=== PATIENT | female | born 1995 | race Caucasian/White ===

== ENCOUNTER 2017-05-24 13:26 | Inpatient (IN) | payer SELFPAY ==
[2017-05-24 14:05] LABS: Hemoglobin 3.6 g/dL (12.0-16.0); Mean Corpuscular HGB CONC 25.8 g/dL (32.0-36.0); Mean Corpuscular Hemoglobin 14.8 pg (25.0-35.0); Mean Corpuscular Volume 57.3 fl (77.0-87.0); Mean Platelet Volume 4.7 fL (7.4-10.4); Platelet Count 360 thou/uL (130-400); RBC Distribution Width 18.9 % (11.5-14.5); Red Blood Cell (RBC) Count 2.43 mill/uL (4.00-5.20); Reflex for Review?? YES; White Blood Cell (WBC) Count 4.4 thou/uL (4.8-10.8)
[2017-05-24 14:09] LABS: INR-International Normal Ratio 1.2; Prothrombin Time 14.9 SEC (12.0-14.7)
[2017-05-24 14:17] LABS: BHCG - Serum Negative (NEGATIVE); Pregs Control Background? CLEAR/WHITE (CLR/WHITE); Pregs Control Bar Appear? YES (CONTROL BAR)
[2017-05-24 14:21] LABS: #Lymphocytes 1.3 thou/uL (1.20-3.40); #Monocytes 0.4 thou/uL (0.11-0.59); #Neutrophils 2.6 thou/uL (1.40-6.50); %Basophils 0.7 % (0.0-1.0); %Eosinophils 0.6 % (0.0-10.0); %Lymphocytes 30.4 % (28.0-48.0); %Neutrophils 59.3 % (31.0-61.0); Anisocytosis MODERATE=16-30 cells (100X) (0-5/hpf); Band 1 % (5-11); Elliptocytes SLIGHT = 2-5 cells (100X) (0-1/hpf); Hypochromia MARKED = >30 cells (100X) (0-5/hpf); Lymphocytes 21 % (28-48); MDiff Complete? YES; Microcytosis MODERATE=15-30 cells (100X) (0-5/hpf); Monocytes 1 % (0-4); Neutrophil 75 % (31-61); Nucleated RBC 1 % (0); Ovalocytes SLIGHT = 2-5 cells (100X) (0-1/hpf); PLT Morphology Comment Appears Adequate; Poikilocytosis SLIGHT = 6-15 cells (100X) (0-5/hpf); Polychromasia MODERATE = 3-4 cells (100X) (0-2/hpf); Schistocytes SLIGHT = 2-5 cells (100X) (0-1/hpf); Spherocytes SLIGHT = 1-5 cells (100X) (None Seen); Target Cells SLIGHT = 2-5 cells (100X) (0-1/hpf); Tear Drops SLIGHT = 2-5 cells (100X) (0-1/hpf)
[2017-05-24 14:22] LABS: ALT (SGPT) Less than 7 U/L (8-55); AST (SGOT) 12 U/L (5-30); Albumin 4.2 g/dL (3.5-5.0); Alkaline Phosphatase 44 U/L (40-150); Anion Gap 10 mmol/L (10-20); BUN (Urea Nitrogen) 10 mg/dL (8.4-21.0); Bilirubin, Total 0.3 mg/dL (0.2-1.2); Calc. Creatinine Clearance 0 mL/min (70-130); Carbon Dioxide 23 mmol/L (22-29); Chloride 106 mmol/L (98-107); Estimated GFR-MDRD Greater than 90; Globulin 2.5 g/dL (2.4-3.5); Glucose 100 mg/dL (70-105); Potassium 3.8 mmol/L (3.5-5.1); Protein, Total 6.7 g/dL (6.0-8.3); Sodium 135 mmol/L (136-145)
--- NOTE | 2017-05-24 15:54 | PDOC.EVN ---
Event Note - Event Note Event Note: GYNECOLOGY History and Physical HPI: I was just called about Ms Morales by Dr Quevedo in the ED. 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 here for persistant HMB. her hbg was 3.6 in the ER and the ED team is transfusing her. As I am in L&D with another patient's needs, I have discussed the case with the ER physician and we will admit her to the gynecology floor after she starts her transfusion (3 units ). Past med HX: Type 2 VWF Allergies: none Physical: slight to moderate VB PV per ER report Sono pending Meds pending: IV premarin 25 mg IV Q6 hrs Consult: Dr Wiggins consult Assessment/Plan: Severe anemia from HMB due to VBF deficinecy. 1. Heme onc aware and will eval as inpatient 2. IV estrogen for now 3. sono pending per protocol 4. 3 unit PRBCs
[2017-05-24 16:50] LABS: Ref Lab Test Ordered VWF SCREENING PROFIL; Reference Lab Name LABCORP
--- NOTE | 2017-05-24 16:52 | ULT ---
PELVIC SONOGRAM TRANSABDOMINAL AND TRANSVAGINAL IMAGING WITH DUPLEX EVALUATION: HISTORY: Pelvic pain and bleeding. FINDINGS: Urinary bladder is incompletely distended. Uterus has a very heterogeneous echotexture measuring up to 12.3 cm. Centrally within the uterus is a very heterogeneous slightly hypoechoic mass measuring u p to 9.2 x 7.3 cm. It is not clear if this arises from the endometrium or from the myometrium, marke dly compressing the otherwise not visualized endometrium. No free fluid is evident within the pelvis. Neither ovary is visualized with transabdominal or trans vaginal imaging. No adnexal masses are apparent. IMPRESSION: Large heterogeneous uterine mass as detailed above, measuring up to 9.2 cm. It is not clear if it ar ises from the endometrium or from the myometrium. Please consider gynecologic consultation. MRI of the female pelvis on a nonemergent basis may be helpful for better characterization of the abnormalit y. POS: [facility]
[2017-05-24] MEDS ORDERED: Estrogens, Conjugated 25 mg Vial SLOW IVP SCH ×2 (17:00→18:00)
--- NOTE | 2017-05-24 17:41 | PDOC.EVN ---
Event Note - Event Note Event Note: Patient has just arrived to [facility] floor. I will see her when free in L&D. Per communication with [facility] floor RN, no blood has yet been given in ED. I have authorized to start NOW with her 3 units PRBCs. NS ordered for IVfs. Estrogen dose x 1 given in ED.
[2017-05-24 17:50] VITALS: BMI 23.3
[2017-05-24] MEDS ORDERED: Acetaminophen 500 MG TAB PO PRN (18:27)
--- NOTE | 2017-05-24 18:35 | PDOC.EVN ---
Event Note - Event Note Event Note: Patient sen at bedside at 1830. Mother in room. Mother also with VWF deficiency. History reviewed: no prior transfusion. No surgeries. No allergies. s. The patient is well but has a headache. still with some vag bleed o. Pulse 114. Physical: NAD abd soft and nt pelvic deffered assessment: known vWF with svere anemia due to VWF plan: 1. IV e2 in use 2. Blood now going. i was told she would start that in ED but did not. 3. IVFs 4. Needs OCPs after stabilization as outpatient 5. Dr zhang pending sono has been done in ED
[2017-05-24] MEDS ORDERED: Sterile Water 10 ML ONE (21:43)
[2017-05-24] MEDS: Estrogens, Conjugated 25 mg Vial SLOW IVP SCH (21:49)
[2017-05-24] MEDS: Sodium Chloride 0.9% 1,000 ML IV SCH (21:52)
[2017-05-25] MEDS: Estrogens, Conjugated 25 mg Vial SLOW IVP SCH ×5 (01:23→21:20)
[2017-05-25] MEDS: Sodium Chloride 0.9% 1,000 ML IV SCH ×4 (05:21→17:14)
--- NOTE | 2017-05-25 07:01 | PDOC.EVN ---
Event Note - Event Note Event Note: HD 1. Seen at bedside at 0645 S. feels better. No COREA now. States VB is vert slight now O. Last unit ended at 0530..Hct ordered for 1200 noon IV estrogen will be complete at 1700 Physical: NAD Pelvic deferred A/P: Severe anemia from VWF. S/P 3 units. Plan: Hct at 1200 noon Continue E2 until 1700 (24 hours) Watch overnight and then home on a 1.530 OCP for continuous use (no placebos) Lidia to see her today
--- NOTE | 2017-05-25 07:35 | PDOC.EVN ---
Event Note - Event Note Event Note: MRI note: I discussed sono with patient. As she is 21 with a large mass on the uterus (9cm ), this may NOT just be a fibroid. I will get the MRI today to correlate. I have discussed this with the patient and our nursing staff.
[2017-05-25] MEDS ORDERED: IRON DEXTRAN IVPB SCH (09:45)
[2017-05-25] MEDS ORDERED: SODIUM CHLORIDE IVPB SCH (09:45)
[2017-05-25] MEDS ORDERED: ADMIXTURE FEE IVPB SCH (09:45)
[2017-05-25 10:27] LABS: Iron 14 ug/dL (50-170); Iron Binding Capacity, Total 389 mcg/dL (265-497)
[2017-05-25 10:57] LABS: #Basophils 0.1 thou/uL (0.0-0.2); #Eosinphils 0.1 thou/uL (0.0-0.7); #Lymphocytes 2.1 thou/uL (1.20-3.40); #Monocytes 0.7 thou/uL (0.11-0.59); #Neutrophils 4.1 thou/uL (1.40-6.50); %Basophils 0.7 % (0.0-1.0); %Lymphocytes 29.8 % (28.0-48.0); %Monocytes 9.5 % (0.0-4.0); %Neutrophils 58.1 % (31.0-61.0); Anisocytosis MODERATE=16-30 cells (100X) (0-5/hpf); Hemoglobin 7.1 g/dL (12.0-16.0); Hypochromia MODERATE=16-30 cells (100X) (0-5/hpf); MDiff Complete? YES; Mean Corpuscular HGB CONC 31.1 g/dL (32.0-36.0); Mean Corpuscular Hemoglobin 20.7 pg (25.0-35.0); Mean Corpuscular Volume 66.4 fl (77.0-87.0); Mean Platelet Volume 4.9 fL (7.4-10.4); Microcytosis MODERATE=15-30 cells (100X) (0-5/hpf); Ovalocytes SLIGHT = 2-5 cells (100X) (0-1/hpf); Platelet Count 305 thou/uL (130-400); Poikilocytosis SLIGHT = 6-15 cells (100X) (0-5/hpf); RBC Distribution Width 22.9 % (11.5-14.5); Red Blood Cell (RBC) Count 3.43 mill/uL (4.00-5.20)
--- NOTE | 2017-05-25 10:58 | CON ---
DATE OF CONSULTATION: 05/25/2017 REASON FOR CONSULTATION: Von Willbrand factor deficiency. HISTORY OF PRESENT ILLNESS: Ms. Morales is a pleasant 21-year-old female, who presented to the emergency room with vaginal bleeding and headache. She has a known history of Von Willbrand fact or deficiency. Her mother has the same diagnosis. She was originally diagnosed as a child, but has never had any bleeding episodes or issues. She states her vaginal bleeding started 6 days ago. In [facility] ER, a CBC showed a white count of 4.4, hemoglobin of 3.6, hematocrit of 13.9, and a platelet count of 360,000. The patient was transfused 3 units of packed RBCs. She states that her vaginal bleedin g has mostly resolved. She is having some light spotting. She admits to fatigue and shortness of br eath with exertion. She did have a vaginal ultrasound performed, which showed a large heterogeneous mass measuring 9.2 x 7.3 and likely the source of her bleeding, we were asked to see the patient's to assist with treatment and diagnosis. PAST MEDICAL HISTORY: Von Willbrand factor deficiency, type 2. PAST SURGICAL HISTORY: None. ALLERGIES: No known drug allergies. HOME MEDICATIONS: None. FAMILY HISTORY: Mother has Von Willbrand factor deficiency. SOCIAL HISTORY: She is single, lives in [facility]. No alcohol, tobacco, or illicit drug use. REVIEW OF SYSTEMS: Twelve-point review of systems is negative except for noted in HPI. PHYSICAL EXAMINATION: VITAL SIGNS: Temperature is 98.2, pulse is 94, respiratory rate 18, BP is 123/77. She is 100% on ro om air. GENERAL: This is a well-developed, well-nourished female in no acute distress. HEENT: Normocephalic, atraumatic. Pupils equal and reactive to light. She does have pallor. NECK: Supple. CARDIOVASCULAR: Regular rate and rhythm. LUNGS: Clear. ABDOMEN: There is a palpable firm mass in her pelvic area. It is nontender. EXTREMITIES: There is no clubbing, cyanosis, or edema. SKIN: No rash. HEMATOLOGIC: No petechia or purpura. NEUROLOGIC: Nonfocal. PSYCHIATRIC: The patient is alert and oriented and appropriate. PERTINENT LABORATORY AND X-RAYS: Yesterday's CBC showed a white count of 4.4, hemoglobin 3.6, hemato crit of 13.9, and a platelet count of 360. Her sodium was 135, potassium 3.8, chloride 106, CO2 is 2 3, BUN is 10, creatinine 0.69, calcium is 9.0, total bilirubin is 0.3, AST is 12, ALT is less than 7, alkaline phosphatase is 44. Serum total protein is 6.7, albumin 4.2, globulin 2.5. Her i s negative. Radiology per HPI. ASSESSMENT: 1. Von Willbrand factor deficiency. 2. Vaginal bleeding. 3. Severe anemia. 4. Uterine mass on the ultrasound. DISCUSSION: The patient has been transfused 3 units of packed RBCs. I do not have a repeat hemoglob in at this time and we will order that stat now. She has microcytic anemia and is most likely iron d eficient from her bleeding. We will order iron studies and give her an infusion of IV iron. She has been on oral iron in the past, which she says is constipating so we will fix her with IV iron. She has received estrogen with almost complete resolution of her vaginal bleeding. We will not give her DDAVP at this time, but it is an option should she continue to have significant bleeding. She will b e placed on oral contraceptive products by the hospitalist once her estrogen is done, and agree with an MRI to evaluate this uterine mass. If it is felt this is not fibroid in nature, we will pursue fu rther options at that time. Thank you for the consult and allowing us to participate and care for this sweet young lady.
--- NOTE | 2017-05-25 11:21 | MRI ---
MRI PELVIS WITH AND WITHOUT CONTRAST: Date: 05/25/17 HISTORY: Pelvic mass. Bleeding. Low hemoglobin. COMPARISON: Pelvic ultrasound dated 05/24/17. FINDINGS: There is a myometrial anterior uterine body, 9.5 x 8.2 x 9.6 cm, T1 and T2 heterogeneous, mass. This has noninfiltrative borders and does not extend through the serosa. This does cause some mass effect upon the endometrial canal with a small submucosal component. Small volume fluid within the pelvic cul-de-sac. A few nabothian cysts of the cervix. Right ovarian c yst is present. Paraspinal musculature is normal. Marrow signal is unremarkable. There appears to be an annular fissu re at L5-S1. IMPRESSION: Large anterior myometrial mass of the uterine body, which is intramural, with a small submucosal comp onent, most suggestive of a fibroid. No extension through the serosa. No cystic component. Majority o f the mass enhances. POS: [facility]
[2017-05-25] MEDS ORDERED: Sterile Water 10 ML ONE (19:50)
[2017-05-25 21:40] VITALS: BP 123/65; TEMP 98.1
--- NOTE | 2017-05-26 02:08 | DIS ---
DATE OF ENCOUNTER: 05/25/2017 DATE OF ADMISSION: 05/24/2017 DATE OF DISCHARGE: 05/25/2017 ADMITTING DIAGNOSES: Symptomatic anemia, menorrhagia, and von Willebrand deficiency. DISCHARGE DIAGNOSES: Symptomatic anemia, menorrhagia, and von Willebrand deficiency. CONSULTATIONS: Hematology/Oncology. PROCEDURE: Blood transfusion. HOSPITAL COURSE: The patient is a 21-year-old female who was admitted to the hospital floor for alfonzo rubilizet of severe symptomatic anemia due to heavy vaginal bleeding. The patient is known to have Von Willebrand's deficiency inherited from her mother and has had very heavy periods. She became symptom atic with excessive shortness of breath and came for evaluation in conjunction with the vaginal bleed ing and was noted to have hemoglobin of 3.6, hematocrit 13.9, platelets of 360,000. The patient was admitted, has been given 3 units of packed red blood cells and is now at 7.1, hematocrit 22.8, and is feeling much better. She has been given IV Premarin over the course of the day and her bleeding has since abated. In evaluation, the patient was noted to have a large 9 cm transmural fibroid as evide nced by ultrasound and MRI. The patient has had Oncology consulted and has confirmed iron deficiency , has ordered IV iron, which she has received and has tolerated well, and has had some other testing in relationship to her Von Willebrand's disorder. On the evening of hospital day #2, the patient has stayed stable with vaginal bleeding nearly gone, has received her iron, has received the completion of her IV estrogen, and desires to go home. I have spoken with Oncology who has asked that she follo w up with them in 7-10 days and that she call next week for an appointment. [facility] up with [facility], where she could see Dr. Vini daugherty or Dr. Valiente, in 5-6 weeks to follow up with control use with the purpose of stopping her periods. The patient has expressed understanding. We have also recommended that she have a followu p ultrasound in 2-3 months just to confirm that this uterine mass is not acutely growing. I have cou nseled her that this mass may affect her fertility, maybe making it more difficult for her bleeding t o stop during menstruation and I have recommended discussing further management options with this fib roid including surgical removal now or at the time of desiring fertility or after proved that this is causing problems with her fertility. Vital signs today at the time of discharge, blood pressure is 126/69, pulse 71, respiratory rate of 18, temperature 98.0. In general, she appears to be in no acut e distress. She is alert and oriented, cooperative and pleasant to interact with. She is ambulating in the halls without difficulty. Again, hemoglobin at the time of discharge 7.1, hematocrit 22.8. Iron studies have confirmed iron deficiency with iron level of 14, TIBC of 384, saturation of 4, ferr itin less than 2. The patient is being discharged home on Sprintec to be taken continuously with [facility] instructions to skip the placebo pills as she has 2 packs ordered for her. She has also been c ounseled to take [id number] iron. She reports that she has difficulty taking the pills as she has significant irritation resulting in nausea and vomiting when she takes iron pills. We have recom mended that she try the liquid iron or that she try something that contains less iron in the pill she has been on such as a gummy or children's iron chewable in addition to take foods high in iron such as red meat, dark green leafy vegetables, some legumes such as lentils would be higher in iron than o thers. The patient and family have expressed understanding and are ready for discharge.
== END 2017-05-25 22:25 | disposition home or self-care (01) | DRG 813 ==
LOC: ERS 13:26 → 3SE 16:28
PROVIDERS: ADMIT Obstetrics & Gynecology; ATTEND Obstetrics & Gynecology
PROC: 30233N1 Transfusion of Nonautologous Red Blood Cells into Peripheral Vein, Percutaneous Approach (ICD-10-PCS; principal; 2017-05-25)
DX: D68.0 Von Willebrand disease (principal); D25.1 Intramural leiomyoma of uterus; D50.0 Iron deficiency anemia secondary to blood loss (chronic); N92.0 Excessive and frequent menstruation with regular cycle; N93.9 Abnormal uterine and vaginal bleeding, unspecified; N93.8 Other specified abnormal uterine and vaginal bleeding
CPT/HCPCS: 36415; 36430; 72197; 76856; 80053; 82728; 83540; 83550; 84703; 85025; 85060; 85247; 85610; 86850; 86900; 86901; 93005; 96374; A4216; J1410; J1750; J7050; P9016

== ENCOUNTER 2017-06-21 19:21 | Emergency (ER) | payer SELFPAY ==
[2017-06-21 20:13] LABS: #Eosinphils 0.1 thou/uL (0.0-0.7); #Monocytes 0.6 thou/uL (0.11-0.59); #Neutrophils 3.3 thou/uL (1.40-6.50); %Basophils 0.7 % (0.0-1.0); %Eosinophils 1.6 % (0.0-10.0); %Lymphocytes 43.3 % (28.0-48.0); %Monocytes 7.9 % (0.0-4.0); %Neutrophils 46.6 % (31.0-61.0); Hemoglobin 10.9 g/dL (12.0-16.0); Mean Corpuscular HGB CONC 31.9 g/dL (32.0-36.0); Mean Corpuscular Hemoglobin 26.1 pg (25.0-35.0); Mean Corpuscular Volume 81.8 fl (77.0-87.0); Mean Platelet Volume 4.8 fL (7.4-10.4); Platelet Count 423 thou/uL (130-400); RBC Distribution Width 25.6 % (11.5-14.5); Red Blood Cell (RBC) Count 4.16 mill/uL (4.00-5.20)
[2017-06-21 20:27] LABS: Anisocytosis MODERATE=16-30 cells (100X) (0-5/hpf); Hypochromia SLIGHT = 6-15 cells (100X) (0-5/hpf); MDiff Complete? YES; Ovalocytes SLIGHT = 2-5 cells (100X) (0-1/hpf); PLT Morphology Comment Appears Increased; Polychromasia SLIGHT = 2-3 cells (100X) (0-2/hpf); Small Platelets SLIGHT; Tear Drops SLIGHT = 2-5 cells (100X) (0-1/hpf)
[2017-06-21 20:35] LABS: ALT (SGPT) 14 U/L (8-55); AST (SGOT) 23 U/L (5-34); Albumin 4.4 g/dL (3.5-5.0); Alkaline Phosphatase 56 U/L (40-150); Anion Gap 13 mmol/L (10-20); BUN (Urea Nitrogen) 11 mg/dL (7.0-18.7); Bilirubin, Total 0.2 mg/dL (0.2-1.2); Calc. Creatinine Clearance 0 mL/min (70-130); Calcium 9.5 mg/dL (7.8-10.44); Carbon Dioxide 23 mmol/L (22-29); Chloride 107 mmol/L (98-107); Estimated GFR-MDRD Greater than 90; Glucose 88 mg/dL (70-105); Potassium 3.7 mmol/L (3.5-5.1); Protein, Total 7.4 g/dL (6.0-8.3); Sodium 139 mmol/L (136-145)
[2017-06-21 21:43] LABS: BHCG - Serum Negative (NEGATIVE); Pregs Control Background? CLEAR/WHITE (CLR/WHITE); Pregs Control Bar Appear? YES (CONTROL BAR)
[2017-06-21] MEDS ORDERED: Tranexamic Acid 650 MG TAB PO SCH (22:30)
== END 2017-06-21 22:35 | disposition home or self-care (01) ==
LOC: ERS 19:21
DX: D25.9 Leiomyoma of uterus, unspecified (principal); D64.9 Anemia, unspecified; D68.0 Von Willebrand disease
CPT/HCPCS: 36415; 80053; 84703; 85025; 86850; 86900; 86901; 96360

== ENCOUNTER 2018-02-28 08:50 | Emergency (ER) | payer MEDICAID ==
[2018-02-28 09:24] LABS: #Eosinphils 0.1 thou/uL (0.0-0.7); #Lymphocytes 2.4 thou/uL (1.20-3.40); #Monocytes 0.4 thou/uL (0.11-0.59); #Neutrophils 3.5 thou/uL (1.40-6.50); %Basophils 0.4 % (0.0-1.0); %Eosinophils 2.2 % (0.0-10.0); %Lymphocytes 36.9 % (28.0-48.0); %Monocytes 6.6 % (0.0-4.0); %Neutrophils 53.9 % (31.0-61.0); Hemoglobin 12.3 g/dL (12.0-16.0); Mean Corpuscular Hemoglobin 24.8 pg (25.0-35.0); Mean Corpuscular Volume 77.5 fL (78.0-98.0); Mean Platelet Volume 7.9 fL (7.4-10.4); Platelet Count 351 thou/uL (130-400); RBC Distribution Width 15.4 % (11.5-14.5); Red Blood Cell (RBC) Count 4.94 mill/uL (4.00-5.20); White Blood Cell (WBC) Count 6.4 thou/uL (4.8-10.8)
[2018-02-28 09:43] LABS: ALT (SGPT) 22 U/L (8-55); AST (SGOT) 20 U/L (5-34); Albumin 4.5 g/dL (3.5-5.0); Alkaline Phosphatase 54 U/L (40-150); Anion Gap 12 mmol/L (10-20); BUN (Urea Nitrogen) 13 mg/dL (7.0-18.7); Bilirubin, Total 0.3 mg/dL (0.2-1.2); Calc. Creatinine Clearance 0 mL/min (70-130); Calcium 9.8 mg/dL (7.8-10.44); Carbon Dioxide 24 mmol/L (22-29); Chloride 107 mmol/L (98-107); Estimated GFR-MDRD Greater than 90; Globulin 3.6 g/dL (2.4-3.5); Glucose 92 mg/dL (70-105); Potassium 4.1 mmol/L (3.5-5.1); Protein, Total 8.1 g/dL (6.0-8.3); Sodium 139 mmol/L (136-145)
[2018-02-28 10:16] LABS: Bilirubin Negative (Negative); Blood, Urine Large (Negative); Clarity CLEAR (Clear); Glucose, Urine (Dipstick) Negative (Negative); Leukocyte Negative (Negative); Nitrite Negative (Negative); Protein, Urine (Dipstick) Negative (Neg-Trace); Urobilinogen 0.2 mg/dL (0.2-1.0)
[2018-02-28 10:17] LABS: Bacteria/HPF Rare-Few HPF (None Seen); Hyaline Casts/LPF 0-3 HYALINE CAST LPF (0-3 Hyaline); Pathc Cast-AUWi Flag 0.43 (0-2.49); Pregnancy Test - Urine (BHCG) Negative (Negative); WBC/HPF 0-3 HPF (0-3)
[2018-02-28 10:18] LABS: Pregu Control Background? CLEAR/WHITE (CLR/WHITE); Pregu Control Bar Appear? YES (CONTROL BAR)
--- NOTE | 2018-02-28 10:48 | ULT ---
PELVIC ULTRASOUND: COMPARISON: None. HISTORY: Uterine tumor, vaginal bleeding. The patient has a history of von Willebrand's disease. TECHNIQUE: Multiplanar, crystal scale, and color Doppler images were obtained in a transabdominal pelvic ultrasound . Spectral analysis of the Doppler waveforms of the right ovary was performed. FINDINGS: There is a large heterogeneous mass within the uterus measuring 9.4 cm in greatest dimension. The ut erus is enlarged. The endometrial stripe is normal in thickness measuring 6 mm. The left ovary could not be visualized. No free fluid is seen in the pelvis. The right ovary is nor mal in size and appearance and demonstrates normal internal flow. IMPRESSION: Large uterine mass. This could represent a fibroid. POS: [facility]
--- NOTE | 2018-02-28 21:34 | CON ---
DATE OF CONSULTATION: 02/28/2018 No primary care of [employer] care physician. REFERRING PHYSICIAN: Anthony Warner DO CHIEF COMPLAINT: Vaginal bleeding. HISTORY OF PRESENT ILLNESS: The patient is a 22-year-old nulliparous female with a past medical history significant for Von Willebrand's disease who has been having a longstanding history of excessive vaginal bleeding. The patient was placed on control last May when she was initially presented to the hospital with a hemoglobin of 3 and has returned today with 5-day history of intermittent heavy bleeding. The patient and her mother report that the control pills are not working as well as they used to. They also reports that she is having a hard time keeping a job because the amount of bleeding that she is having and how quickly she has been changing her pad and tampon. The patient reports that she has been through full box of pads per day for the last couple of days and can go through full entire box of tampons in one day at times. She reports some shortness of breath and dizziness and mother reports that she looks more pale than usual. PAST MEDICAL HISTORY: Von Willebrand's disease. PAST SURGICAL HISTORY: Tonsillectomy. SOCIAL HISTORY: Denies drug, alcohol, or tobacco use. ALLERGIES: NO KNOWN DRUG ALLERGIES. MEDICATIONS: Ogestrel, which she takes just the active pills. REVIEW OF SYSTEMS: The patient denies chills or fever. Denies runny nose or sore throat. Denies chest pain. Denies cough. Reports some abdominal cramping and pain. Denies urinary urgency. Denies . Denies any rash or skin changes. Denies headache. PHYSICAL EXAMINATION: VITAL SIGNS: Blood pressure 138/90, pulse 76, respiratory rate 18, temperature 98.8, and saturating 98% on room air. GENERAL: She appears to be in no acute distress. She has a fairly good color in her skin and had good capillary refill in her extremities and is warm to the touch in her hands. The patient appears to be in no acute distress. She is alert, oriented, cooperative, and pleasant to interact with. HEAD: Normocephalic and atraumatic. LUNGS: Clear to auscultation bilaterally. HEART: Regular rate and rhythm. ABDOMEN: Soft. She does have a palpable mass in her right lower quadrant, which has been persistent and documented at a prior visit last Spring and believed to be a uterine fibroids. PELVIC: Speculum exam was performed by the ER physician, noting a very small amount of blood in the vault. LABORATORY DATA: test is negative. Hemoglobin is 12.3, hematocrit 38.3, platelets at 350,000 with an RDW of 15, MCV of 77. Sodium 139, potassium 4.1, creatinine 0.77, AST of 20, ALT of 22, and glucose of 92. DIAGNOSTIC STUDIES: Ultrasound demonstrates a uterus with an endometrial stripe of 6 mm and a large 8 to 9 heterogeneous mass. ASSESSMENT AND PLAN: The patient is a 22-year-old female having heavy intermittent vaginal bleeding and a history of severe anemia requiring blood transfusions. The patient reports that her control pills which she has been taking persistently inconsistently are not working as well as they had been in the past. The patient is without insurance and cannot afford routine follow up as an outpatient until she can qualify for insurance once again, though the patient does not show any laboratory signs of anemia nor any physical findings consistent with severe anemia, her true hemoglobin likely is lower than 12 indicated on her laboratory today, though likely not anywhere near need for intervention. We have discussed the need for her to follow up with outpatient [employer] to maintain the management plan on her problems. She does have an outside [employer] that she is working to reestablish care with when she can get insurance. The long-term plan at this time is surgery to remove the fibroid from her uterus which is measuring about 8 to 9 cm. Given the stronger progestin effect of control pills, her lining has thinned and likely may be attributing to worsening bleeding. At this point, her main goal is to be able to maintain employment long enough to get insurance, qualify for insurance, and so that she can have a definitive surgical plan in place. We have asked her at this time to continue with her control pills. I have given her 4 days of Lysteda to help with her immediate bleeding, which she reports has helped in the past. I have also added estrogen to her plan for thickening of her uterine lining in an effort to slow down her bleeding as well. The patient has been asked to take 2 mg of estradiol three times a day for the next 2 days and then 2 times a day for two days and then once a day continuously with her control pill until she can see her [employer] once again. She has been given 60 tablets, which hopefully can give her enough time to do that. The patient and her mother understand the plan and are on board. She also will be going home with a note to excuse her from work today. Job ID: [id number] [facility]ITAL[facility]
== END 2018-02-28 11:46 | disposition home or self-care (01) ==
LOC: ERS 08:50
DX: N93.9 Abnormal uterine and vaginal bleeding, unspecified (principal); D25.9 Leiomyoma of uterus, unspecified; Z79.899 Other long term (current) drug therapy
CPT/HCPCS: 36415; 76856; 80053; 81003; 81015; 81025; 85025; 93976

== ENCOUNTER 2019-03-15 20:21 | Emergency (ER) | payer MEDICAID, SELFPAY ==
[2019-03-15 20:45] LABS: Bilirubin Negative (Negative); Blood, Urine Negative (Negative); Clarity Clear (Clear); Glucose, Urine (Dipstick) Normal (Negative); Leukocyte Negative Leu/uL (Negative); Nitrite Negative (Negative); Protein, Urine (Dipstick) Negative (Neg-Trace); Urobilinogen Normal mg/dL (Less than 2)
[2019-03-15 20:46] LABS: Pregnancy Test - Urine (BHCG) Negative (Negative); Pregu Control Background? CLEAR/WHITE (CLR/WHITE); Pregu Control Bar Appear? YES (CONTROL BAR); Specific Gravity 1.022 (1.002-1.036)
[2019-03-15 20:51] LABS: #Basophils 0.1 thou/uL (0.0-0.2); #Eosinphils 0.2 thou/uL (0.0-0.7); #Lymphocytes 3.2 thou/uL (1.20-3.40); #Monocytes 0.9 thou/uL (0.11-0.59); #Neutrophils 4.6 thou/uL (1.40-6.50); %Basophils 0.7 % (0.0-1.0); %Eosinophils 2.6 % (0.0-10.0); %Lymphocytes 36.2 % (21.0-51.0); %Monocytes 9.5 % (0.0-10.0); Hemoglobin 9.3 g/dL (12.0-16.0); Mean Corpuscular HGB CONC 32.3 g/dL (32.0-36.0); Mean Corpuscular Volume 68.3 fL (78.0-98.0); Mean Platelet Volume 7.7 fL (7.4-10.4); Platelet Count 330 thou/uL (130-400); RBC Distribution Width 14.5 % (11.5-14.5); Red Blood Cell (RBC) Count 4.24 mill/uL (4.20-5.40); White Blood Cell (WBC) Count 8.9 thou/uL (4.8-10.8)
[2019-03-15 21:12] LABS: ALT (SGPT) 22 U/L (8-55); AST (SGOT) 24 U/L (5-34); Albumin 4.7 g/dL (3.5-5.0); Alkaline Phosphatase 80 U/L (40-110); Anion Gap 11 mmol/L (10-20); BUN (Urea Nitrogen) 13 mg/dL (7.0-18.7); Bilirubin, Total 0.3 mg/dL (0.2-1.2); Calc. Creatinine Clearance 0 mL/min (70-130); Calcium 9.3 mg/dL (7.8-10.44); Carbon Dioxide 24 mmol/L (22-29); Chloride 106 mmol/L (98-107); Estimated GFR-MDRD Greater than 90; Globulin 3.1 g/dL (2.4-3.5); Glucose 90 mg/dL (70-105); Potassium 3.5 mmol/L (3.5-5.1); Protein, Total 7.8 g/dL (6.0-8.3); Sodium 137 mmol/L (136-145)
[2019-03-15 21:22] LABS: PTT 28.6 SEC (22.9-36.1); Prothrombin Time 13.1 SEC (12.0-14.7)
[2019-03-15] MEDS ORDERED: Morphine 4 MG/ML VIAL ONE (21:24)
[2019-03-15] MEDS ORDERED: Ondansetron PF 4 MG/2 ML Vial ONE (21:24)
--- NOTE | 2019-03-15 21:39 | ULT ---
Pelvic ultrasound: 03/15/2019 COMPARISON: 02/28/2018 pelvic ultrasound, pelvic MRI 05/25/2017 HISTORY: Lower abdominal pain TECHNIQUE: Multiplanar grayscale sonographic imaging of the pelvis obtained with transabdominal imagi ng. Ovaries are assessed with color flow and spectral analysis FINDINGS: The uterus measures 17.7 x 11.1 x 13.2 cm and contains a large dominant heterogeneously hyp oechoic solid mass, not optimally assessed on this examination, measuring at least 11.1 x 12.7 x 7.7 cm. Measurements on this ultrasound are greater than on a pelvic MRI performed 05/25/2017 at which time this mass measured approximately 9.9 x 8.9 x 8.8 cm. The endometrium cannot be reliably measured. There is small volume free fluid in the pelvic cul-de-sac. Left ovary measures 4.0 x 1.7 x 2.3 cm and right ovary measures 3.0 x 1.4 x 3.7 cm. Normal blood flow noted within the ovaries. No ovarian mass. IMPRESSION: Enlarging uterine mass lesion measuring at least 12.7 cm, significantly grown when compar ed prior imaging. This may represent a uterine fibroid. Leiomyosarcoma cannot be excluded.
== END 2019-03-15 22:30 | disposition home or self-care (01) ==
LOC: ERS 20:21
DX: N85.9 Noninflammatory disorder of uterus, unspecified (principal); N93.9 Abnormal uterine and vaginal bleeding, unspecified; D50.9 Iron deficiency anemia, unspecified
CPT/HCPCS: 36415; 76856; 80053; 81003; 81025; 85025; 85610; 85730; 86850; 86900; 86901; 96374; 96375; J2270; J2405

== ENCOUNTER 2019-11-27 10:10 | Emergency (ER) | payer OTHER ==
[2019-11-27 17:09] LABS: SARS-CoV-2 MS2 Positive; SARS-CoV-2 N Gene Negative; SARS-CoV-2 S Gene Negative; SARS-CoV-2 by NAA Not Detected (NotDetected); SARS-CoV-2 orf1ab Negative
== END 2019-11-27 10:34 | disposition home or self-care (01) ==
LOC: ERS 10:10
DX: R05 Cough (principal); R68.83 Chills (without fever); J02.9 Acute pharyngitis, unspecified; Z20.828 Contact with and (suspected) exposure to other viral communicable diseases
CPT/HCPCS: 87635; 99283; U0003

== ENCOUNTER 2021-09-29 20:58 | Emergency (ER) | payer OTHER, SELFPAY ==
[2021-09-29] MEDS ORDERED: Dexameth. Sod Phosp. 10 MG/ML (CHEMO USE ONLY) ONE (21:36)
[2021-09-29] MEDS ORDERED: Diazepam 5 MG TAB ONE (21:38)
== END 2021-09-29 21:57 | disposition home or self-care (01) ==
LOC: ERS 20:58
DX: M54.41 Lumbago with sciatica, right side (principal)
CPT/HCPCS: 99283; J1100

== ENCOUNTER 2023-03-16 01:05 | Emergency (ER) | payer SELFPAY ==
[2023-03-16 01:59] LABS: Pregnancy Test - Urine (BHCG) Negative (Negative); Pregu Control Background? CLEAR/WHITE (CLR/WHITE); Pregu Control Bar Appear? YES (CONTROL BAR); Specific Gravity 1.008 (1.002-1.036)
[2023-03-16] MEDS ORDERED: Cyclobenzaprine 10 MG TAB ONE (02:01)
[2023-03-16] MEDS ORDERED: Dexamethasone 10 MG/ML VIAL ONE (02:01)
[2023-03-16] MEDS ORDERED: Ketorolac Tromethamine 30 MG (1 mL) VIAL ONE (02:01)
[2023-03-16] MEDS ORDERED: Ondansetron ODT 4 MG TAB ONE (02:02)
== END 2023-03-16 02:21 | disposition home or self-care (01) ==
LOC: ERS 01:05
DX: M26.601 Right temporomandibular joint disorder, unspecified (principal)
CPT/HCPCS: 81025; 96372; 99284; J1100; J1885; Q0162